=== PATIENT | female | born 1945 | race Two or more races ===

== ENCOUNTER 2019-10-25 16:31 | Inpatient (IN) | payer MEDICARE, OTHER ==
[~2019-10-25] VITALS: Ht 152.4 cm; Wt 61.7 kg
--- NOTE | 2019-10-25 16:43 | NUR ---
PT IS IN ROOM #1B. DR FLOYD EVALUATED THE PT.
[2019-10-25] MEDS ORDERED: DIVA-78 PO (17:00)
[2019-10-25] MEDS ORDERED: LOSA50TA39 PO (17:00)
[2019-10-25] MEDS ORDERED: ATOR20TA PO (17:00)
[2019-10-25] MEDS ORDERED: CLOP75TA15 PO (17:00)
[2019-10-25] MEDS ORDERED: AMLO5TAB9 PO (17:00)
[2019-10-25] MEDS ORDERED: MIRT15TA7 PO (17:09)
[2019-10-25] MEDS ORDERED: HALO2TAB PO (17:09)
[2019-10-25] MEDS ORDERED: MEMA10TA PO (17:09)
[2019-10-25] MEDS ORDERED: DIVA250T4 PO (17:09)
[2019-10-25] MEDS ORDERED: VENL75TA4 PO (17:09)
[2019-10-25] MEDS ORDERED: PANT40TA4 PO (17:09)
--- NOTE | 2019-10-25 17:23 | NUR ---
REPORT WAS GIVEN TO RN MHU. PT WAS TRANSFERED TO ROOM #138.
[2019-10-25] MEDS ORDERED: MAG HYDROX/AL HYDROX/SIMETH 30 ML LIQUID UDC PO PRN (17:45)
[2019-10-25] MEDS ORDERED: MAGNESIUM HYDROXIDE 30 ML LIQUID UDC PO PRN (17:45)
[2019-10-25] MEDS ORDERED: BLOOD SUGAR DIAGNOSTIC 1 EACH STRIP VI ONE (17:45)
[2019-10-25] MEDS ORDERED: TEMAZEPAM 7.5 MG CAPSULE PO PRN (17:45)
[2019-10-25 17:58] VITALS: BP 154/86
--- NOTE | 2019-10-25 18:00 | NUR ---
Admission note: Patient is a 74 year old female brought to the ED on a 5150 from [facility] .Per hold, Patient was found on the ground at home and making statements to the police about wanting to kill herself, without a plan. Upon face to face evaluation, patient presented labile. One minute talking normally and then crying on and off talking about "The babies". Patient also switches from Ukrainian to Yakut during the conversation. Patient is awake but only oriented x 1-2. D/t recent CVA, right arm noted as flaccid and right leg weak, leaving this patient wheelchair bound. Patient is depressed and has trouble with ADLS. Medications have been reviewed by Hand Packager and ordered. VS are stable. Report given to on coming shift. Patient denies SI at this time. Q15 checks in place.
--- NOTE | 2019-10-25 19:45 | NUR ---
RECEIVED PATIENT IN HER ROOM IN BED. SHE IS NOTED AWAKE A/O X 1. SHE WAS NOTED UPSET, IRRITABLE, SHE DEMANDED TO LEAVE THE PLACE AND GO HOME. SHE WAS NOTED VERBALLY ABUSIVE. ATIVAN 1MG PO PRN WAS OFFERED BUT SHE REFUSED. PATIENT REQUIRED MULTIPLE REDIRECTION TO CALM HER DOWN AND REASSURED; SHE THEN ASKED FOR BOOKS AND MAGAZINES TO PASS THE TIME UNTIL SHE SEES THE DOCTOR IN THE MORNING. PATIENT WAS GIVEN SOME MAGAZINES TO READ AND SHE WAS REASSURED FOR HER SAFETY. SAFETY AND FALL PRECAUTION IN PLACE. WILL CONTINUE TO MONITOR.
[2019-10-25 19:56] VITALS: BP 137/87
--- NOTE | 2019-10-25 20:40 | NUR ---
PATIENT NOTED READING A MAGAZINE, LESS IRRITABLE, BUT CONTINUE ANXIOUS AND FIXED ON GOING HOME TONIGHT. PATIENT WAS REASSURED AND REDIRECTED. SHE WAS ALSO GIVEN ATIVAN 1MG PO PRN. WE WILL CONTINUE TO MONITOR CLOSELY.
[2019-10-25] MEDS: LORAZEPAM 1 MG TABLET PO PRN (20:42)
[2019-10-25] MEDS: ATORVASTATIN 20 MG TABLET PO SCH (21:04)
--- NOTE | 2019-10-25 22:00 | NUR ---
PATIENT NOTED CALM AND PLEASANT UPON APPROACHED. SHE DENIED SI. SHE STATED THAT SHE NEVER SAID THAT SHE WANTED TO , AND THAT THEY MADE A MISTAKE BRINGING HER HERE HERE. PATIENT WAS REASSURED AND REDIRECTED ONCE AGAIN. SHE WAS ABLE TO CFS. SHE IS REASSURED FOR HER SAFETY. SAFETY AND FALL PRECAUTION IN PLACE. WILL CONTINUE TO MONITOR.
[2019-10-26] MEDS: LORAZEPAM 1 MG TABLET PO PRN (06:00)
[2019-10-26] MEDS: PANTOPRAZOLE SODIUM 40 MG TABLET.DR PO SCH (06:00)
--- NOTE | 2019-10-26 06:57 | NUR ---
Patient slept for approx 4 hrs through the night. No aggressive/combative bx noted. she had a shower. she continue denying SI/HI/VH/AH. will continue to monitor.
[2019-10-26 07:30] VITALS: BP 148/86
[2019-10-26 07:47] LABS: BILIRUBIN,TOTAL 0.8 mg/dL (0.2-1.0); CREATININE 1.1 mg/dL (0.6-1.3); POTASSIUM 3.3 mmol/L (3.5-5.1); TOTAL PROTEIN, SERUM 7.5 g/dL (6.4-8.2)
[2019-10-26] MEDS: CLOPIDOGREL 75 MG TABLET PO SCH (08:11)
[2019-10-26] MEDS: AMLODIPINE 5 MG TABLET PO SCH ×2 (08:11→17:00)
[2019-10-26] MEDS: LOSARTAN POTASSIUM 50 MG TABLET PO SCH (08:12)
[2019-10-26] MEDS ORDERED: POTASSIUM CHLORIDE 20 MEQ TAB.PRT.SR PO ONE (11:00)
--- NOTE | 2019-10-26 11:24 | NUR ---
BELA Initial Discharge Note: Patient was previously staying with her significant other, Luisito ([phone]) but he was unable to provide the appropriate care for her. Patient was then placed in a Board and Care which soon after was transferred to a Hospital for UTI and the facility no longer was willing to accept the patient back. Patient needs a board and care placement upon discharge. BELA will continue to work with patient, family, and MD to ensure a safe and proper discharge plan.
--- NOTE | 2019-10-26 11:24 | NUR ---
BELA Family Contact: BELA spoke with patient's daughter, Linda ([phone]) who stated that the patient is unable to return back to live with her significant, Luisito ([phone]) because he is unable to provide the appropriate care for the patient. Linda stated that the patient was placed in a Board and Care recently and soon they transferred her to a hospital due to a UTI and aggressive behaviors. Linda stated that the board and care no longer wanted to accept the patient back which is when the patient returned back to temporarily stay with Luisito until a more permanent placement was found for her. Then the patient had an episode of manic behavior and stating she was going to "kill herself with out a plan". Linda stated that she handles the patient financed and pays for her board and care placement and will continue to be her payee. Linda also stated that she is in the process of getting POA of the patient. Linda stated that the patient is receiving services from [facility] ([phone]) who also has been working on finding the patient placement. This health underwriter then called Bruce and spoke with her regarding this. Bruce stated that she has a placement agency in their area that will be working on finding the patient a placement near [place]. This health underwriter informed Bruce that should they be unable to find a placement this health underwriter can find one in the [facility] area. Addendum: 10/26/19 at 1149 by ALBER ALATORRE BELA also spoke with Luisito ([phone]) patient's significant other who stated that the patient was staying with him temporarily until a permanent placement is found. He directed this health underwriter to speak with the patient's daughter, Linda.
--- NOTE | 2019-10-26 12:36 | NUR ---
GPS: RECEIVED PATIENT SITTING ON ANIYAH CHAIR, PATIENT AOX1, CONFUSED, PATIENT TOOK HER MORNING PILLS, PATIENT LABILE AND FORGETFUL, PATIENT VERBALIZES THAT SHE WANTED TO GO HOME, PATIENT REFUSED HER KDUR AT THIS TIME WILL TRY AGAIN LATER, PATIENT SITTING IN ANIYAH CHAIR IN DINING [place] ATE HER LUNCH
[2019-10-26] MEDS: DIVALPROEX 250 MG TABLET.DR PO SCH (17:00)
[2019-10-26] MEDS: HALOPERIDOL 2 MG TABLET PO SCH (17:00)
[2019-10-26 20:00] VITALS: BP 94/58
[2019-10-26] MEDS: ATORVASTATIN 20 MG TABLET PO SCH (22:00)
--- NOTE | 2019-10-26 22:30 | NUR ---
received to care, lying in bed, asleep. pleasant upon approach. compliant with medications and staff direction. as of 2229, she appears to be asleep. no distress noted. will continue to monitor closely.
[2019-10-27] MEDS: LORAZEPAM 1 MG TABLET PO PRN (03:19)
--- NOTE | 2019-10-27 03:19 | NUR ---
PRN ativan given for restlessness/ hollering
--- NOTE | 2019-10-27 03:45 | NUR ---
appears to be asleep. no distress noted.
--- NOTE | 2019-10-27 06:00 | NUR ---
slept 8.75 hours, total. continues to sleep. no distress noted.
[2019-10-27] MEDS: PANTOPRAZOLE SODIUM 40 MG TABLET.DR PO SCH (06:25)
[2019-10-27 07:30] VITALS: BP 155/84
[2019-10-27 07:30] LABS: BASOPHILS # (AUTO) 0.1 K/uL (0.0-8.0); BASOPHILS % (AUTO) 1.2 % (0.0-2.0); EOSINOPHILS # (AUTO) 0.1 K/uL (0.0-0.7); EOSINOPHILS % (AUTO) 3.1 % (0.0-7.0); HEMATOCRIT 37.7 % (31.2-41.9); HEMOGLOBIN 12.6 g/dL (10.9-14.3); LYMPHOCYTES # (AUTO) 1.8 K/uL (20.0-40.0); LYMPHOCYTES % (AUTO) 39.4 % (20.5-51.5); MEAN CORPUSCULAR HEMOGLOBIN 28.6 uug (24.7-32.8); MEAN CORPUSCULAR HGB CONC 34 g/dL (32.3-35.6); MEAN CORPUSCULAR VOLUME 85.2 fL (75.5-95.3); MONOCYTES # (AUTO) 0.4 K/uL (2.0-10.0); MONOCYTES % (AUTO) 7.6 % (0.0-11.0); NEUTROPHILS # (AUTO) 2.3 K/uL (1.8-8.9); NEUTROPHILS % (AUTO) 48.7 % (38.5-71.5); PLATELET COUNT (AUTO) 285 K/uL (179-408); RED BLOOD CELL COUNT(AUTO) 4.42 MIL/uL (3.63-4.92); WHITE BLOOD COUNT (AUTO) 4.7 K/uL (3.8-11.8)
[2019-10-27 08:03] LABS: CREATININE 0.8 mg/dL (0.6-1.3); MAGNESIUM 1.9 mg/dL (1.8-2.4); PHOSPHOROUS 3.9 mg/dL (2.5-4.9); POTASSIUM 3.4 mmol/L (3.5-5.1)
[2019-10-27 08:17] LABS: THYROID STIMULATING HORMONE 2.767 mIU/mL (0.358-3.740)
[2019-10-27] MEDS ORDERED: POTASSIUM CHLORIDE 20 MEQ TAB.PRT.SR PO ONE (09:00)
[2019-10-27] MEDS: AMLODIPINE 5 MG TABLET PO SCH ×3 (09:00→17:32)
[2019-10-27] MEDS: VENLAFAXINE 25 MG TABLET PO SCH ×2 (09:00→10:30)
[2019-10-27] MEDS: CLOPIDOGREL 75 MG TABLET PO SCH ×2 (09:00→09:42)
[2019-10-27] MEDS: HALOPERIDOL 2 MG TABLET PO SCH ×2 (09:00→09:41)
[2019-10-27] MEDS: LOSARTAN POTASSIUM 50 MG TABLET PO SCH ×2 (09:00→09:40)
--- NOTE | 2019-10-27 09:00 | NUR ---
SEEN AND EXERCISED WITH PT, PT ABLE TO HELP A LITTLE BIT.
--- NOTE | 2019-10-27 09:30 | NUR ---
PT REFUSED TO TAKE HER KDUR 40MEQ AND INFORMED MALCOLM DNP.
--- NOTE | 2019-10-27 09:30 | NUR ---
PT REFUSED TO TAKE HER MORNING MEDICATIONS. APPEARS ANXIOUS AND VERY NON-COMPLIANT, VERBALLY ABUSIVE AND RUDE AND UNCOOPERATIVE. PT ATE GOOD. LEFT UPPER ARM IS FLACCID AND CONTRACTED. LEFT LOWER LEG IS WEAK.
[2019-10-27] MEDS: DIVALPROEX 250 MG TABLET.DR PO SCH ×2 (09:41→13:00)
--- NOTE | 2019-10-27 10:30 | NUR ---
PT IS IN THE ACTIVITY ROOM.
--- NOTE | 2019-10-27 14:51 | NUR ---
BELA Brief Individual Counseling: ironing worker met with patient and provided brief individual counseling to address the patient's presenting problem, suicidal ideation. Patient presents alert and oriented times 2. Patient shares that she "just said something" and that she never intended on killing herself. SW provided understanding and support for the patient and the importance of expressing appropriately. Patient currently denies suicidal ideation and plans to hurt herself. Patient presents with disorganized thought process.
--- NOTE | 2019-10-27 15:00 | NUR ---
SEEN AND EXAMINED BY DR MCDONALD WITH NEW ORDERS.
[2019-10-27 16:00] VITALS: BP 123/71
[2019-10-27] MEDS: DIVALPROEX SPRINKLE 125 MG CAP.SPRINK PO SCH (17:31)
[2019-10-27 20:02] VITALS: BP 101/60
[2019-10-27] MEDS: risperiDONE 1 MG TABLET PO SCH (20:16)
[2019-10-27] MEDS: ATORVASTATIN 20 MG TABLET PO SCH (20:17)
--- NOTE | 2019-10-27 22:00 | NUR ---
received to care, lying in bed, asleep. pleasant upon approach. compliant with medications and staff direction. as of 2199, she appears to be asleep. no distress noted. will continue to monitor closely.
--- NOTE | 2019-10-28 06:00 | NUR ---
slept 9.5 hours, total. continues to sleep. no distress noted.
[2019-10-28] MEDS: PANTOPRAZOLE SODIUM 40 MG TABLET.DR PO SCH (06:29)
[2019-10-28 07:30] VITALS: BP 137/69
--- NOTE | 2019-10-28 08:00 | NUR ---
RECIEVED PT LYING IN BED, AWAKE, ALERT AND ORIENTED TO HER NAME AND PLACE. ASSISTED PT UP ON THE WC AND TOOK HER TO THE DINING ROOM. PT IS COOPERATIVE.
[2019-10-28] MEDS: LOSARTAN POTASSIUM 50 MG TABLET PO SCH (09:07)
[2019-10-28] MEDS: risperiDONE 1 MG TABLET PO SCH ×2 (09:07→21:03)
[2019-10-28] MEDS: CLOPIDOGREL 75 MG TABLET PO SCH (09:07)
[2019-10-28] MEDS: DIVALPROEX SPRINKLE 125 MG CAP.SPRINK PO SCH ×3 (09:07→17:00)
[2019-10-28] MEDS: AMLODIPINE 5 MG TABLET PO SCH ×2 (09:08→17:33)
[2019-10-28] MEDS: VENLAFAXINE 25 MG TABLET PO SCH (09:10)
--- NOTE | 2019-10-28 14:52 | NUR ---
BELA Family Contact: BELA spoke with patient's daughter, Linda ([phone]) who stated that she has a few nursing homes that the patient can possibly be admitted to upon discharge. BELA advised Linda to speak to them today and tomorrow this scientific technical writer can fax the patient's referral packet for review. Linda stated that she will call this scientific technical writer tomorrow with updates.
[2019-10-28 16:00] VITALS: BP 104/60
[2019-10-28] MEDS: ACETAMINOPHEN 325 MG TABLET PO PRN (17:33)
[2019-10-28 19:40] VITALS: BP 120/64
[2019-10-28] MEDS: ATORVASTATIN 20 MG TABLET PO SCH (21:02)
[2019-10-29] MEDS: ACETAMINOPHEN 325 MG TABLET PO PRN (01:21)
[2019-10-29] MEDS: PANTOPRAZOLE SODIUM 40 MG TABLET.DR PO SCH (06:13)
[2019-10-29 07:30] VITALS: BP 133/69
[2019-10-29] MEDS: DIVALPROEX SPRINKLE 125 MG CAP.SPRINK PO SCH ×3 (08:33→17:36)
[2019-10-29] MEDS: AMLODIPINE 5 MG TABLET PO SCH ×2 (08:34→17:36)
[2019-10-29] MEDS: LOSARTAN POTASSIUM 50 MG TABLET PO SCH (08:36)
[2019-10-29] MEDS: risperiDONE 1 MG TABLET PO SCH ×2 (08:36→20:40)
[2019-10-29] MEDS: CLOPIDOGREL 75 MG TABLET PO SCH ×2 (08:37→09:00)
[2019-10-29] MEDS: VENLAFAXINE 25 MG TABLET PO SCH (08:37)
--- NOTE | 2019-10-29 09:17 | NUR ---
Received patient up in jason chair this AM. Pleasant at first and knows she is in [facility], but argumentative when it came to taking her medications. Patient refused to take Plavix. Grinding Mill Operator educated and encourage patient on the importance of that medication. Patient responded with " I do not care if I get another stroke and . I do not care if I ". Patient very irritable, argumentative and delusional about the medications. Continuing to encourage medication and medical treatment compliance. Patient with multiple complaints about the food, coffee etc. Monitoring closely for safety and behavior escalation.
--- NOTE | 2019-10-29 14:20 | NUR ---
BELA Brief Individual Counseling: public health social worker met with patient and provided brief individual counseling to address the patient's presenting problem, suicidal ideation. Patient presents with more awareness to her current situation and presenting problems, however continues to remain disorganized. Patient speech is slow. Patient states she wants to go home. This residential mortgage underwriter assessed patient level of suicidality and patient denies suicidal ideation. SW encouraged patient to continue to participate in group activities and engage with peers.
[2019-10-29 15:21] VITALS: BP 102/65
[2019-10-29 20:00] VITALS: BP 114/76
[2019-10-29] MEDS: ATORVASTATIN 20 MG TABLET PO SCH (20:40)
--- NOTE | 2019-10-29 22:00 | NUR ---
received to care, up in wheel chair, pleasant upon approach. compliant with medications and staff direction. as of 2199, she appears to be asleep. no distress noted. will continue to monitor closely.
--- NOTE | 2019-10-30 06:00 | NUR ---
slept 7.5 hours, total. continues to sleep. no distress noted.
[2019-10-30] MEDS: PANTOPRAZOLE SODIUM 40 MG TABLET.DR PO SCH (06:17)
[2019-10-30 07:30] VITALS: BP 136/64
[2019-10-30] MEDS: risperiDONE 1 MG TABLET PO SCH ×2 (09:00→20:22)
[2019-10-30] MEDS: CLOPIDOGREL 75 MG TABLET PO SCH (09:00)
[2019-10-30] MEDS: LOSARTAN POTASSIUM 50 MG TABLET PO SCH (09:00)
[2019-10-30] MEDS: AMLODIPINE 5 MG TABLET PO SCH ×2 (09:26→17:28)
[2019-10-30] MEDS: DIVALPROEX SPRINKLE 125 MG CAP.SPRINK PO SCH ×3 (09:26→17:28)
[2019-10-30] MEDS: VENLAFAXINE 25 MG TABLET PO SCH (09:27)
--- NOTE | 2019-10-30 13:09 | NUR ---
BELA Family Contact: BELA left a voicemail for patient's daughter, Linda ([phone]) to follow up regarding discharge planning. Addendum: 10/30/19 at 1329 by ALBER ALATORRE Linda called this radio script writer back and stated that they have arranged [facility] assisted [facility] ([phone]) placement for the patient and are waiting to pay in order to secure the placement. Linda stated that she will pay for [employer] transportation for the patient upon discharge.
[2019-10-30 15:26] VITALS: BP 117/66
[2019-10-30] MEDS: ATORVASTATIN 20 MG TABLET PO SCH (20:23)
[2019-10-30 20:40] VITALS: BP 124/67
[2019-10-31] MEDS: PANTOPRAZOLE SODIUM 40 MG TABLET.DR PO SCH (06:12)
[2019-10-31 07:30] VITALS: BP 143/72
[2019-10-31] MEDS: risperiDONE 1 MG TABLET PO SCH ×2 (09:06→20:25)
[2019-10-31] MEDS: DIVALPROEX SPRINKLE 125 MG CAP.SPRINK PO SCH ×3 (09:06→17:30)
[2019-10-31] MEDS: LOSARTAN POTASSIUM 50 MG TABLET PO SCH (09:06)
[2019-10-31] MEDS: AMLODIPINE 5 MG TABLET PO SCH ×2 (09:07→17:31)
[2019-10-31] MEDS: CLOPIDOGREL 75 MG TABLET PO SCH (09:07)
[2019-10-31] MEDS: VENLAFAXINE 25 MG TABLET PO SCH (09:08)
--- NOTE | 2019-10-31 10:48 | NUR ---
GPS/RN: PT RECEIVED LYING IN BED, RESPONSIVE VERBALLY AND ABLE TO MAKE NEEDS KNOWN BUT CONFUSE A BIT. PT WAS ASSISTED TO SITTING POSITION FROM BED AND ASSIST WITH FEEDING. PT NOTED WITH LEFT RIGHT UPPER ARM WEAKNESS/FLACCID, AND LEFT LOWER LEG WEAK AND FLACCID. COOPERATIVE WITH ROUTINE MEDICATIONS, ABLE TO SWALLOW MEDS WHOLE. DENIED SI, BUT INCOHERENT AND CONFUSE UNAWARE OF SURROUNDING AT THIS TIME. PT WAS ASSISTED TO W/C, PARTICIPATED IN ACTIVITY IN TV ROOM. A/O X2, TOOK SHOWER AND SKIN REASSESSED WITH NOTED SMALL REDNESS ON BUTTOCK. WILL MONITOR.
[2019-10-31 20:15] VITALS: BP 164/67
[2019-10-31] MEDS: ATORVASTATIN 20 MG TABLET PO SCH (20:25)
[2019-11-01] MEDS: PANTOPRAZOLE SODIUM 40 MG TABLET.DR PO SCH (06:07)
[2019-11-01 07:30] VITALS: BP 118/69
--- NOTE | 2019-11-01 07:51 | NUR ---
GPS: received patient AOx1, asleep on bed VS WNL, no distress at this time
[2019-11-01] MEDS: DIVALPROEX SPRINKLE 125 MG CAP.SPRINK PO SCH ×3 (08:12→16:13)
[2019-11-01] MEDS: CLOPIDOGREL 75 MG TABLET PO SCH (08:13)
[2019-11-01] MEDS: risperiDONE 1 MG TABLET PO SCH ×2 (08:13→20:33)
[2019-11-01] MEDS: VENLAFAXINE 25 MG TABLET PO SCH (08:16)
[2019-11-01] MEDS: LOSARTAN POTASSIUM 50 MG TABLET PO SCH (09:00)
[2019-11-01] MEDS: AMLODIPINE 5 MG TABLET PO SCH ×2 (09:00→16:13)
--- NOTE | 2019-11-01 14:35 | NUR ---
Patient was sitting in day room in a wheelchair and the TICK SEWER took VS which were B/P 79/46 hr 57. Upon recheck the B/P was lower 66/34 and the patient was nonresponsive. Patient put into bed, Rapid response called. Legs elevated, blood sugar 120. Patient became alert and oriented x2 at this time, B/P on recheck 155/[address] Rincon notified, orders received. Continuing to monitor patients sensorium, VS and for any significant changes.
[2019-11-01 15:13] VITALS: BP 155/77
--- NOTE | 2019-11-01 15:51 | NUR ---
patient asleep, with BP 155/77 at this time, patient responsive , AOx2, asleep on bed, no distress at this time
--- NOTE | 2019-11-01 17:38 | NUR ---
Patient remain in her bed awake, ate her dinner, patient was able to eat by herself, will continue monitor
[2019-11-01] MEDS: ATORVASTATIN 20 MG TABLET PO SCH (20:29)
[2019-11-01 20:32] VITALS: BP 136/72
[2019-11-01] MEDS: ACETAMINOPHEN 325 MG TABLET PO PRN (21:01)
[2019-11-01 21:36] LABS: BASOPHILS # (AUTO) 0.1 K/uL (0.0-8.0); BASOPHILS % (AUTO) 1.2 % (0.0-2.0); EOSINOPHILS # (AUTO) 0.1 K/uL (0.0-0.7); EOSINOPHILS % (AUTO) 1.8 % (0.0-7.0); HEMATOCRIT 36.7 % (31.2-41.9); HEMOGLOBIN 12.4 g/dL (10.9-14.3); LYMPHOCYTES % (AUTO) 37.1 % (20.5-51.5); MEAN CORPUSCULAR HGB CONC 34 g/dL (32.3-35.6); MEAN CORPUSCULAR VOLUME 86.1 fL (75.5-95.3); MONOCYTES # (AUTO) 0.3 K/uL (2.0-10.0); MONOCYTES % (AUTO) 5.6 % (0.0-11.0); NEUTROPHILS # (AUTO) 2.9 K/uL (1.8-8.9); NEUTROPHILS % (AUTO) 54.3 % (38.5-71.5); PLATELET COUNT (AUTO) 234 K/uL (179-408); RED BLOOD CELL COUNT(AUTO) 4.27 MIL/uL (3.63-4.92); WHITE BLOOD COUNT (AUTO) 5.4 K/uL (3.8-11.8)
[2019-11-01 21:47] LABS: BILIRUBIN,TOTAL 0.4 mg/dL (0.2-1.0); CREATININE 1.1 mg/dL (0.6-1.3); MAGNESIUM 1.9 mg/dL (1.8-2.4); POTASSIUM 3.8 mmol/L (3.5-5.1); TOTAL PROTEIN, SERUM 6.7 g/dL (6.4-8.2)
[2019-11-02] MEDS: PANTOPRAZOLE SODIUM 40 MG TABLET.DR PO SCH (06:03)
--- NOTE | 2019-11-02 06:14 | NUR ---
GPS: Pt.now awake,just had a shower. Slept 8.45 minutes. Denies pain/discomfort. Alert-verbally responsive without any resp.distress noted. Up on jason-chair as vanessa. Will continue to monitor.
[2019-11-02 07:30] VITALS: BP 131/68
[2019-11-02] MEDS: DIVALPROEX SPRINKLE 125 MG CAP.SPRINK PO SCH ×3 (08:50→17:00)
[2019-11-02] MEDS: CLOPIDOGREL 75 MG TABLET PO SCH (08:51)
[2019-11-02] MEDS: VENLAFAXINE 25 MG TABLET PO SCH (08:51)
[2019-11-02] MEDS: AMLODIPINE 5 MG TABLET PO SCH ×2 (08:51→17:00)
[2019-11-02] MEDS: risperiDONE 1 MG TABLET PO SCH ×2 (08:51→21:15)
[2019-11-02] MEDS: LOSARTAN POTASSIUM 50 MG TABLET PO SCH (08:52)
[2019-11-02 10:50] VITALS: BP 146/64
[2019-11-02 10:55] VITALS: BP 115/63
--- NOTE | 2019-11-02 11:06 | NUR ---
Patient seen and examined by MARK Fregoso. ordered monitor for orthostatic HTN. Latest BP- sitting 145/70 lying 115/60. Patient slight lying on the jason chair right now. responsive during conversation. not in distress. will continue monitor
--- NOTE | 2019-11-02 14:45 | NUR ---
Patient is calm in jason-chair. Consume meals fairly. no behavioral problem noted. Good appearance and grooming noted. no signs of pain/discomfort noted. will continue monitor
[2019-11-02 16:00] VITALS: BP 125/68
--- NOTE | 2019-11-02 17:54 | NUR ---
Patient done with echocardiogram as order by YESENIA Fregoso. awaiting final result.
[2019-11-02 20:35] VITALS: BP 130/64
[2019-11-02] MEDS: ATORVASTATIN 20 MG TABLET PO SCH (21:15)
--- NOTE | 2019-11-02 23:08 | NUR ---
RECEIVED PATIENT IN BED SLEEPING INTERMITTENTLY. APPEARS A BIT CONFUSED AND WITHDRAWN. MOOD LOW AND MILDLY DEPRESSED. HOWEVER SHE DENIES SI/HI .ALSO NOTED WITH RIGHT UPPER ARM WEAKNESS/FLACCID. COOPERATIVE WITH MEDICATIONS AFTER SOME BENEFITS WAS EXPLAINED. SAFETY PRECAUTIONS IN PLACE.WILL CONTINUE TO MONITOR.
[2019-11-03] MEDS: PANTOPRAZOLE SODIUM 40 MG TABLET.DR PO SCH (06:10)
--- NOTE | 2019-11-03 06:16 | NUR ---
SLEPT FOR APPROXIMATELY 10HRS. PERSONAL HYGEINE MAINTAINED AND Q 2HOURLY REPOSITIONED.
[2019-11-03 07:37] VITALS: BP 129/59
[2019-11-03] MEDS: LOSARTAN POTASSIUM 50 MG TABLET PO SCH (08:45)
[2019-11-03] MEDS: AMLODIPINE 5 MG TABLET PO SCH ×2 (08:45→16:43)
[2019-11-03] MEDS: DIVALPROEX SPRINKLE 125 MG CAP.SPRINK PO SCH ×3 (08:45→16:43)
[2019-11-03] MEDS: risperiDONE 1 MG TABLET PO SCH ×2 (08:45→20:41)
[2019-11-03] MEDS: CLOPIDOGREL 75 MG TABLET PO SCH (08:45)
[2019-11-03] MEDS: VENLAFAXINE 25 MG TABLET PO SCH (08:49)
--- NOTE | 2019-11-03 11:47 | NUR ---
BELA Family Contact: BELA spoke with patient's daughter, Linda ([phone]) to follow up regarding discharge planning. Linda stated that they arranged for a caregiver for the patient and they would prefer the patient to return home upon discharge. Linda stated that the caregiver will be assigned by a referral agency and she spoke with Rianna Lema ([phone]) and they have used their services before. Linda stated that she will also pay for the transportation for the patient back home.
[2019-11-03 16:28] VITALS: BP 125/62
--- NOTE | 2019-11-03 18:45 | NUR ---
Patient continue compliant with medication. no behavioral problem noted. Consumed fairly during mealtime. not in distress. no complaint of pain/discomfort noted. will continue monitor
[2019-11-03 19:51] VITALS: BP 111/66
[2019-11-03] MEDS: ATORVASTATIN 20 MG TABLET PO SCH (20:41)
--- NOTE | 2019-11-03 23:46 | NUR ---
GPS/RN: PT ASLEEP IN BED, ABUSABLE TO LIGHT TOUCH OR NAME. A/OX2, DENIED ABNORMAL. COOPERATIVE WITH ROUTINE MEDICATIONS. NO AGGRESSIVE BEHAVIOR NOTED. PT SEEM DEPRESS WHILE AWAKE. WILL ENCOURAGE TO VENT OUT FEELINGS, AND CONTINUE Q/15MINS HEAD CHECK.
[2019-11-04] MEDS: PANTOPRAZOLE SODIUM 40 MG TABLET.DR PO SCH (06:39)
[2019-11-04 08:02] VITALS: BP 139/70
[2019-11-04] MEDS: CLOPIDOGREL 75 MG TABLET PO SCH (09:10)
[2019-11-04] MEDS: DIVALPROEX SPRINKLE 125 MG CAP.SPRINK PO SCH ×3 (09:10→17:39)
[2019-11-04] MEDS: AMLODIPINE 5 MG TABLET PO SCH ×2 (09:11→17:39)
[2019-11-04] MEDS: LOSARTAN POTASSIUM 50 MG TABLET PO SCH (09:11)
[2019-11-04] MEDS: VENLAFAXINE 25 MG TABLET PO SCH (09:12)
[2019-11-04] MEDS: risperiDONE 1 MG TABLET PO SCH ×2 (09:24→20:47)
--- NOTE | 2019-11-04 09:37 | NUR ---
Social Work Firearms Report ([employer]): Director Enterprise Data Architecture completed and submitted a [employer] firearms report for 5250 grave disability certification. A copy of report has been placed in patient chart.
[2019-11-04 16:00] VITALS: BP 144/66
[2019-11-04 18:30] VITALS: BP_SYST 142; BP_SYST 98; BP_DIAS 61; BP_DIAS 65
--- NOTE | 2019-11-04 19:08 | NUR ---
1800 ortostatic B/P: lying B/P- 142/65 HR- 95 and sitting B/P- 98/61 HR- 92
[2019-11-04 19:59] VITALS: BP 117/56
[2019-11-04] MEDS: ATORVASTATIN 20 MG TABLET PO SCH (20:47)
--- NOTE | 2019-11-04 21:37 | NUR ---
PATIENT RECEIVED IN BED AWAKE. PATIENT IS COMPLAINT WITH MEDICATION. PATIENT ALLOWS STAFF TO PROVIDE CARE WITH FALL PRECAUTIONS RENDERED. PATIENT IS ABLE TO REPOSITION HER SELF. PATIENT DENIES SI. NO AGGRESSIVE OR COMBATIVE BEHAVIOR NOTED, WILL CONTINUE TO MONITOR. SAFE ENVIRONMENT PROVIDED, FREQUENT ROUNDING, AND CLUTTER FREE ENVIRONMENT. BED IN LOWEST POSITION, BED LOCKED, AND BED ALARM ON WHILE IN BED.
[2019-11-05] MEDS: PANTOPRAZOLE SODIUM 40 MG TABLET.DR PO SCH (06:15)
[2019-11-05 07:44] VITALS: BP 144/61
--- NOTE | 2019-11-05 08:28 | NUR ---
Social Work Initial Discharge Plan: Patient will be discharged back home today [address] [place] [address] ([phone]). Patient will be provided [employer] transportation at 1pm (spoke with Kumar [phone]) paid for by patients significant-other Luisito ([phone]). Patient is alert and oriented times 3. Patient presents with appropriate mood and euthymic affect. Patient denies suicidal or homicidal ideation. Patients daughterLinda ([phone]) is aware and agreeable with patients discharge plans. Patient will be following up with her primary care physician Dr. Tao [address], [place] [address] ([phone]) and has a telehealth appointment scheduled on Saturday November 09, 2019 at 2pm with [facility] Sales [facility]. Patients home health, [facility] will be resuming services for the patient and will be providing medication management, behavioral health nurse, physical therapy and registered nurse visits, spoke with Bruce (ph: [phone] fax: [phone]). Bruce also referred the patient for mobile Psychiatrist Dr. Maddox ([phone]) who will be following up with the patient upon discharge.
[2019-11-05] MEDS: DIVALPROEX SPRINKLE 125 MG CAP.SPRINK PO SCH (08:50)
[2019-11-05] MEDS: CLOPIDOGREL 75 MG TABLET PO SCH (08:50)
[2019-11-05] MEDS: VENLAFAXINE 25 MG TABLET PO SCH (08:50)
[2019-11-05] MEDS: risperiDONE 1 MG TABLET PO SCH (08:50)
[2019-11-05 08:51] VITALS: BP 144/61
[2019-11-05] MEDS: LOSARTAN POTASSIUM 50 MG TABLET PO SCH (08:51)
[2019-11-05] MEDS: AMLODIPINE 5 MG TABLET PO SCH (08:51)
--- NOTE | 2019-11-05 11:52 | NUR ---
Gps/Science Manager- Discharged planning in progress, will be discharged to her home w/ family, patient was well informed.
--- NOTE | 2019-11-05 13:00 | NUR ---
Gps/Repeat Photocomposing Machine Operator- Prescriptions was was called in to patient's Pharmacy (Faxed) per Event Marketing Coordinator Joseph ,daughter was aware.. All belongings given back to patient. Discharged to Home via [employer] transportation, in good spirit, no complaints noted. all belongings given back to patient. reviewed medications/prescriptions. diet, safety emphasized. No complaints noted
== END 2019-11-05 13:00 | disposition home health service (06) | DRG 885 ==
LOC: ER 16:41 → GPS 17:06
PROVIDERS: ADMIT Psychiatry & Neurology Psychiatry; ATTEND Hospitalist
DX: F31.64 Bipolar disorder, current episode mixed, severe, with psychotic features (principal); I69.351 Hemiplegia and hemiparesis following cerebral infarction affecting right dominant side; F23 Brief psychotic disorder; R45.851 Suicidal ideations; E78.5 Hyperlipidemia, unspecified; E87.6 Hypokalemia; F17.210 Nicotine dependence, cigarettes, uncomplicated; F03.90 Unspecified dementia, unspecified severity, without behavioral disturbance, psychotic disturbance, mood disturbance, and anxiety; I10 Essential (primary) hypertension; I25.10 Atherosclerotic heart disease of native coronary artery without angina pectoris; M19.90 Unspecified osteoarthritis, unspecified site; M81.0 Age-related osteoporosis without current pathological fracture; R73.03 Prediabetes; Z90.5 Acquired absence of kidney; I73.9 Peripheral vascular disease, unspecified; F29 Unspecified psychosis not due to a substance or known physiological condition; F41.9 Anxiety disorder, unspecified
CPT/HCPCS: 36415; 83735; 84100; 84443; 85025; 93005; 93307; A4663; J3490